=== PATIENT | female | born 1930 | race Caucasian/White ===

== ENCOUNTER 2019-10-22 06:39 | Day surgery (SDC) | payer MEDICARE, MEDICAID ==
[~2019-10-22 06:39] MED LIST: Midazolam 1 MG/ML 2 ML SDV ONE; fentaNYL 100 MCG/2 ML SDV ONE
[2019-10-22] MEDS ORDERED: Midazolam 1 MG/ML 2 ML SDV IV ONE ×3 (06:40→07:18)
[2019-10-22] MEDS ORDERED: fentaNYL 100 MCG/2 ML SDV IV ONE ×2 (06:40→07:16)
[2019-10-22] MEDS ORDERED: Dextrose 5%-0.45% NaCl 1,000 ML IV SCH (07:30)
--- NOTE | 2019-10-22 08:04 | OR ---
DATE: 10/22/2019 PROCEDURE: Esophagogastroduodenoscopy and multiple pinch biopsies. INSTRUMENT USED: [id number]-HQ190 Olympus video panendoscope. PREMEDICATIONS: No oral or topical anesthesia used. Fentanyl 50 mcg intravenous, Versed 1 mg intravenous. Nasal O2 cannula. The procedure was done under pulse oximetry, BP recording, and athletic monitor. INDICATION: The patient with progressive weight loss and unexplained iron- deficiency anemia. Esophagogastroduodenoscopy is performed for detection of any active erosive lesions, Walters esophagus and/or malignancy also under consideration, H. pylori status to be determined, small bowel biopsies to be obtained if indicated, endoscopic hemostasis therapy if needed. DESCRIPTION OF PROCEDURE: The scope was passed with ease. Adequate visualization of the esophagus was made from proximal to distal areas. No upper esophageal lesions identified. No distal esophageal stricture. No uphill or downhill esophageal varices. No Anupama-Chamberlain tear. No evidence of erosive esophagitis by [place] criteria. No esophageal polyp or tumor mass identified. Z-line was seen at around 39 cm distal to the oral verge, configuration consistent with grade 1 by ZAP classification. No proximal gastric varices noted. Gastric fundus examination by retroflexion showed no polypoid lesions. No gastric ulcer, malignant mass, or vascular ectasia identified. Duodenal bulb showed no ulcer. Visualized 2nd part of the duodenum was unremarkable. Multiple pinch biopsies, 4 in number, were taken from different areas of the 2nd part of the duodenum, and biopsies were obtained from the duodenal bulb at 9 and 12 o'clock positions and sent for any histopathologic evidence of celiac disease. Multiple pinch biopsies were also taken from the gastric antrum and proximal body and sent for PyloriTek test for H. pylori and histopathology. No bleeding was noted from any of the visualized areas at the completion of examination. Photographs were taken of the duodenal bulb, gastric antrum, fundus, and distal esophagus. IMPRESSION: Normal study. The patient tolerated the procedure well. [facility] /[id number]
[2019-10-22 10:22] VITALS: BP 139/74; PULSE 63
== END 2019-10-22 09:32 | disposition home or self-care (01) ==
LOC: DL.ENDO 06:39
PROVIDERS: ATTEND Internal Medicine Gastroenterology
DX: K29.50 Unspecified chronic gastritis without bleeding (principal); B96.81 Helicobacter pylori [H. pylori] as the cause of diseases classified elsewhere; D50.9 Iron deficiency anemia, unspecified; I10 Essential (primary) hypertension; E78.5 Hyperlipidemia, unspecified; I99.8 Other disorder of circulatory system; M19.90 Unspecified osteoarthritis, unspecified site; M88.9 Osteitis deformans of unspecified bone; E53.8 Deficiency of other specified B group vitamins; T36.4X5A Adverse effect of tetracyclines, initial encounter; L28.0 Lichen simplex chronicus; I34.0 Nonrheumatic mitral (valve) insufficiency; I35.0 Nonrheumatic aortic (valve) stenosis; Z91.14 Patient's other noncompliance with medication regimen; Z98.890 Other specified postprocedural states
CPT/HCPCS: 43239; 87077; 88305; 88342; J2250; J3010; J7042

== ENCOUNTER 2019-10-27 05:59 | Day surgery (SDC) | payer MEDICARE, MEDICAID ==
[~2019-10-27 05:59] MED LIST changes: +Dextrose 5%-0.45% NaCl 1,000 ML IV SCH; -Midazolam 1 MG/ML 2 ML SDV ONE; +Sodium Chloride 0.9% 10 ML Syringe FLUSH PRN; -fentaNYL 100 MCG/2 ML SDV ONE
[2019-10-27] MEDS ORDERED: fentaNYL 100 MCG/2 ML SDV IV ONE ×4 (06:00→07:02)
[2019-10-27] MEDS ORDERED: Midazolam 1 MG/ML 2 ML SDV IV ONE ×2 (06:00→06:54)
[2019-10-27] MEDS ORDERED: Midazolam 1 MG/ML 2 ML SDV ONE (06:14)
[2019-10-27] MEDS ORDERED: fentaNYL 100 MCG/2 ML SDV ONE (06:15)
[2019-10-27] MEDS ORDERED: Dextrose 5%-0.45% NaCl 1,000 ML IV SCH (06:30)
--- NOTE | 2019-10-27 07:57 | OR ---
DATE: 10/27/2019 PROCEDURE: Total colonoscopy. INSTRUMENT USED: [id number]-H190DL Olympus video colonoscope. PREMEDICATIONS: Fentanyl 100 mcg intravenous, Versed 1 mg intravenous, nasal O2 cannula. The procedure was done under pulse oximetry, BP recording, and grout machine operator. INDICATION: The patient with progressive weight loss and unexplained iron- deficiency anemia. Colonoscopic examination is done for detection of any polypoid lesions and removal, endoscopic hemostasis therapy if needed. DESCRIPTION OF PROCEDURE: Initial rectal exam was unremarkable. Rigid anoscopy showed small internal hemorrhoids without bleeding from them. The colonoscope was passed with ease up to the ileocecal area. Photographs were taken of the normal-appearing cecum identified by landmarks of appendiceal orifice and double- bulged ileocecal folds. No bleeding was noted from any of the visualized areas at the commencement of the examination. The bowel preparation was found to be adequate, [place] scale 3 in all the regions, total score 9. No stricture. No vascular ectasia. No large isolated ulcerations seen. No evidence of diffuse inflammatory bowel disease in the form of friability, contact bleeding, or ulcerations. No polyp or tumor mass identified. Probing the proximal sides of folds and flexures using adequate distention and clearing up the stool material, withdrawal of the scope was made, cecum to rectum time over 6 minutes. No bleeding was noted from any of the visualized areas at the completion of examination. IMPRESSION: Internal hemorrhoids. The patient tolerated the procedure well. [facility] /[id number]
[2019-10-27 10:45] VITALS: BP 156/93; PULSE 89
== END 2019-10-27 09:58 | disposition home or self-care (01) ==
LOC: DL.ENDO 05:59
PROVIDERS: ATTEND Internal Medicine Gastroenterology
DX: K64.8 Other hemorrhoids (principal); D50.9 Iron deficiency anemia, unspecified; R63.4 Abnormal weight loss; I10 Essential (primary) hypertension; E78.5 Hyperlipidemia, unspecified; I99.8 Other disorder of circulatory system; M19.90 Unspecified osteoarthritis, unspecified site; M88.9 Osteitis deformans of unspecified bone; I35.0 Nonrheumatic aortic (valve) stenosis; I34.0 Nonrheumatic mitral (valve) insufficiency; L28.0 Lichen simplex chronicus; E53.8 Deficiency of other specified B group vitamins; Z98.890 Other specified postprocedural states; Z68.24 Body mass index [BMI] 24.0-24.9, adult
CPT/HCPCS: 45378; J2250; J3010; J7042